=== PATIENT | female | born 1995 | race Caucasian/White ===

== ENCOUNTER → 2024-01-02 | Outpatient (CLI) | payer BC ==
[2024-01-03 11:53] LABS: Alt. alternata IgE Class CLASS 2; Alternaria alternata IgE 3.34 kU/L (<0.10); Asperg. fumagatus IgE Class CLASS 2; Candida albicans IgE Class CLASS 2; Clad herbarum IgE 0.37 kU/L (<0.10); Clad herbarum IgE Class CLASS 1; Mucor racemosus IgE <0.10 kU/L (<0.10); Mucor racemosus IgE Class CLASS 0; Penicillium chrysogenum IgE 0.63 kU/L (<0.10); Penicillium chrysogenum IgE Cl CLASS 1
[2024-01-03 11:54] LABS: Latex IgE Class CLASS 0/1
== END | disposition home or self-care (01) ==
LOC: LABWHC1 11:12
PROVIDERS: ATTEND Internal Medicine Sleep Medicine
DX: R05.9 Cough, unspecified (principal); R06.02 Shortness of breath
CPT/HCPCS: 36415; 82785; 86001; 86003; 86606; 86609